=== PATIENT | male | born 1980 | race African-American/Black ===

== ENCOUNTER 2017-08-27 10:18 | Emergency (ER) | payer MEDICAID ==
[~2017-08-27] VITALS: Ht 203.2 cm; Wt 107.0 kg
[2017-08-27 10:23] VITALS: BP 138/83
== END 2017-08-27 13:53 | disposition left against medical advice (07) ==
LOC: ER 10:22
DX: L02.91 Cutaneous abscess, unspecified (principal); Z53.21 Procedure and treatment not carried out due to patient leaving prior to being seen by health care provider